=== PATIENT | male | born 1980 | race Two or more races ===

== ENCOUNTER 2021-11-17 14:26 | Inpatient (IN) | payer OTHER ==
[~2021-11-17] VITALS: Ht 175.3 cm; Wt 94.8 kg
[2021-11-17 14:59] LABS: BASOPHILS % 0.4 % (0.0-2.0); EOSINOPHILS % 0.6 % (0.0-5.0); HEMATOCRIT. 49.6 % (42.0-52.0); HEMOGLOBIN. 16.2 g/dL (14.0-18.0); LYMPHOCYTES % 33.1 % (20.0-50.0); MEAN CORPUSCULAR VOLUME 79.3 fL (80.0-94.0); MEAN PLATELET VOLUME 7.5 fl (7.4-10.4); MONOCYTES % 7.7 % (2.0-8.0); NEUTROPHILS % 58.2 % (40.0-76.0); PLATELET 286 x1000/uL (130-400); RED BLOOD CELL COUNT 6.26 mill/uL (4.7-6.1); RED CELL DISTRIBUTION WIDTH 14.1 % (11.6-14.6)
[2021-11-17 15:19] LABS: CHLORIDE 104 mEq/L (98-107)
[2021-11-17] MEDS ORDERED: SODIUM CHLORIDE 0.9% 1,000 ML IV ONE ×2 (16:00→16:15)
[2021-11-17] MEDS ORDERED: ONDANSETRON HCL 4MG/2ML INJ IV STA (16:10)
[2021-11-17] MEDS ORDERED: MECLIZINE 25MG TABLET PO ONE (16:45)
[2021-11-17] MEDS ORDERED: METOCLOPRAMIDE HCL 10MG/2ML VIAL IV ONE (16:45)
[2021-11-17] MEDS ORDERED: LORAZEPAM 2MG/ML CPJ IV ONE (17:45)
[2021-11-17] MEDS ORDERED: ONDANSETRON HCL 4MG/2ML INJ IV ONE (17:45)
[2021-11-17 19:05] LABS: *AMPHETAMINES SCREEN URINE NEGATIVE (NEGATIVE); *BARBITURATES SCREEN URINE NEGATIVE (NEGATIVE)
[2021-11-17 19:06] LABS: *BENZODIAZEPINES SCREEN URINE NEGATIVE (NEGATIVE); *COCAINE SCREEN URINE NEGATIVE (NEGATIVE); METHADONE URINE SCREEN NEGATIVE (NEGATIVE); OPIATES URINE SCREEN NEGATIVE (NEGATIVE); PHENCYCLIDINE URINE SCREEN NEGATIVE (NEGATIVE)
[2021-11-17 19:07] LABS: CANNABINOID URINE SCREEN NEGATIVE (NEGATIVE)
[2021-11-17] MEDS ORDERED: HYDROCODONE/ACETAMINOPHEN 5/325MG TABLET PO PRN (19:30)
[2021-11-17] MEDS ORDERED: ACETAMINOPHEN 325MG TABLET PO PRN ×2 (19:30)
[2021-11-17] MEDS ORDERED: MAGNESIUM/ALUMINUM HYDROXIDE/SIMETHICONE 30ML UDC PO PRN (19:30)
[2021-11-17] MEDS ORDERED: CLONIDINE 0.1MG TABLET PO PRN (19:30)
[2021-11-17] MEDS ORDERED: IPRATROPIUM/ALBUTEROL 0.5-3(2.5)MG/3ML NEB NEB PRN (19:30)
[2021-11-17] MEDS ORDERED: ENOXAPARIN 40MG/0.4ML SYR SUBCUT SCH (19:30)
[2021-11-17] MEDS ORDERED: GUAIFENESIN 200MG/10ML SUGAR FREE UDC PO PRN (19:30)
[2021-11-17] MEDS ORDERED: ONDANSETRON HCL 4MG/2ML INJ IV PRN (19:30)
[2021-11-17] MEDS ORDERED: NALOXONE HCL 0.4MG/ML VIAL IV PRN (20:30)
[2021-11-17] MEDS: ENOXAPARIN 30MG/0.3ML SYR SUBCUT SCH (21:00)
[2021-11-17 21:26] VITALS: BP 130/95
[2021-11-17] MEDS ORDERED: LOSA25TA26 PO (22:39)
[2021-11-17] MEDS ORDERED: METF-414 PO (22:39)
[2021-11-18 04:00] VITALS: BP 117/69
[2021-11-18 08:00] VITALS: BP 141/85
[2021-11-18] MEDS ORDERED: DEXTROSE 50% WATER 50ML SYRINGE IV PRN (09:00)
[2021-11-18] MEDS ORDERED: LOSARTAN POTASSIUM 25 MG TABLET PO SCH (09:00)
[2021-11-18 10:03] LABS: BASOPHILS % 0.2 % (0.0-2.0); EOSINOPHILS % 0.2 % (0.0-5.0); HEMATOCRIT. 44.3 % (42.0-52.0); HEMOGLOBIN. 14.7 g/dL (14.0-18.0); LYMPHOCYTES % 23.9 % (20.0-50.0); MEAN CORPUSCULAR VOLUME 78.4 fL (80.0-94.0); MEAN PLATELET VOLUME 7.6 fl (7.4-10.4); MONOCYTES % 7.7 % (2.0-8.0); PLATELET 262 x1000/uL (130-400); RED BLOOD CELL COUNT 5.65 mill/uL (4.7-6.1)
[2021-11-18 10:16] LABS: CHLORIDE 107 mEq/L (98-107)
[2021-11-18] MEDS: ENOXAPARIN 30MG/0.3ML SYR SUBCUT SCH (10:16)
[2021-11-18 10:34] LABS: FOLIC ACID (FOLATE) SERUM 15.4 ng/mL (>5.38)
[2021-11-18 12:00] VITALS: BP 120/85
[2021-11-18] MEDS ORDERED: BLOOD SUGAR DIAGNOSTIC STRIP TEST SCH (12:10)
[2021-11-18] MEDS ORDERED: GADOTERATE MEGLUMINE 5 MMOL/10 ML VIAL IV ONE (12:40)
[2021-11-18] MEDS ORDERED: INSULIN LISPRO 100 UNITS/ML SUBCUT SCH (12:40)
[2021-11-18] MEDS ORDERED: MECLIZINE 25MG TABLET PO PRN (12:45)
[2021-11-18] MEDS ORDERED: ONDA4TAB11 PO (14:32)
[2021-11-18] MEDS ORDERED: MECL-159 PO (14:32)
[2021-11-18 15:15] LABS: CLARITY URINE CLEAR (CLEAR); COLOR URINE YELLOW (YELLOW); KETONES URINE 2+ (NEGATIVE); LEUKOCYTE ESTERASE URINE NEGATIVE (NEGATIVE); NITRITE URINE NEGATIVE (NEGATIVE); OCCULT BLOOD URINE NEGATIVE (NEGATIVE); PH URINE 5.5 (4.5-8.0); PROTEIN URINE TRACE (NEGATIVE); SPECIFIC GRAVITY URINE 1.045 (1.005-1.030)
[2021-11-18 15:45] VITALS: BP 120/90
[2021-11-18 16:00] VITALS: BP 120/90
== END 2021-11-18 16:35 | disposition home or self-care (01) | DRG 111 ==
LOC: ER 14:26 → 8WST 19:00 → EDBEDREQ 19:02 → EDBEDREQTM 19:02 → SUPCPDRO 19:22 → ENRESERV 20:02
PROVIDERS: ADMIT Internal Medicine; ATTEND Internal Medicine
DX: R42 Dizziness and giddiness (principal); R16.2 Hepatomegaly with splenomegaly, not elsewhere classified; I10 Essential (primary) hypertension; E11.9 Type 2 diabetes mellitus without complications; Z20.822 Contact with and (suspected) exposure to COVID-19; Z79.84 Long term (current) use of oral hypoglycemic drugs; Z79.899 Other long term (current) drug therapy
CPT/HCPCS: 36415; 70553; 71045; 74176; 80048; 80053; 80305; 81003; 82607; 82746; 82962; 83036; 83735; 83880; 84100; 84443; 84484; 85025; 87426; 93005; 99285; A9577; J1650; J1815; J2060; J2405; J2765; J7030; J8597